=== PATIENT | male | born 1985 | race Caucasian/White ===

== ENCOUNTER 2018-09-28 21:18 | Inpatient (IN) | payer BC, MEDICAID ==
[~2018-09-28] VITALS: Ht 170.2 cm; Wt 79.0 kg
[2018-09-28] MEDS ORDERED: phenobarbital inj 260 MG in normal saline 100ml IV soln 99 ML IV STA (21:38)
[2018-09-28] MEDS ORDERED: ondansetron/PF 4mg/2ml inj IV ONE (21:40)
[2018-09-28] MEDS ORDERED: thiamine 100mg tablet PO ONE (21:40)
[2018-09-28] MEDS ORDERED: magnesium oxide 400mg tablet PO ONE (21:40)
[2018-09-28] MEDS ORDERED: normal saline 1000ML IV soln IVB ONE (21:40)
[2018-09-28 21:51] LABS: BASOPHILS # (AUTO) 0.1 X10'3 (0-0.2); BASOPHILS % (AUTO) 0.5 % (0-1); EOSINOPHILS % (AUTO) 0.4 % (0-6); HEMATOCRIT 45.5 % (42.0-52.0); HEMOGLOBIN 15.4 g/dl (14.0-17.9); LYMPHOCYTES # (AUTO) 1.6 X10'3 (1.1-4.8); LYMPHOCYTES % (AUTO) 15.6 % (21-51); MEAN CORPUSCULAR HEMOGLOBIN 33.5 PG (27.0-31.0); MEAN CORPUSCULAR HGB CONC 33.7 % (33.0-36.5); MEAN CORPUSCULAR VOLUME 99.3 FL (78-98); MEAN PLATELET VOLUME 7.4 FL (7.4-10.4); MONOCYTES # (AUTO) 0.9 X10'3 (0-0.9); MONOCYTES % (AUTO) 8.6 % (2-12); NEUTROPHILS # (AUTO) 7.7 X10'3 (1.8-7.7); NEUTROPHILS % (AUTO) 74.9 % (42-75); PLATELET COUNT 292 X10'3 (140-440); RED BLOOD COUNT 4.59 X10'6 (4.70-6.10); RED CELL DISTRIBUTION WIDTH 15.2 % (11.5-14.5); WHITE BLOOD COUNT 10.3 X10'3 (4.5-11.0)
[2018-09-28 22:04] LABS: ALANINE AMINOTRANSFERASE 98 U/L (12-78); ALBUMIN 3.9 G/DL (3.4-5.0); ALBUMIN/GLOBULIN RATIO 0.9 (1.1-1.5); ALKALINE PHOSPHATASE 121 IU/L (46-116); ANION GAP 14 (8-16); ASPARTATE AMINO TRANSFERASE 69 U/L (10-37); BILIRUBIN,TOTAL 0.6 MG/DL (0.1-1.0); BLOOD UREA NITROGEN 5 MG/DL (7-18); BUN/CREATININE RATIO 5.6 (5.4-32.0); CHLORIDE 98 MMOL/L (99-107); ETHANOL 0.026 GM/DL (0.0-0.010); GLUCOSE 112 MG/DL (70-104); LIPASE 107 U/L (73-393); MAGNESIUM 2.1 MG/DL (1.5-2.4); POTASSIUM 3.2 MMOL/L (3.5-5.1); SODIUM 137 MMOL/L (135-145); TOTAL CARBON DIOXIDE 25.1 MMOL/L (24-32); TOTAL PROTEIN 8.1 G/DL (6.4-8.2); eGFR > 90 ML/MIN
[2018-09-28] MEDS ORDERED: potassium Cl 20 mEq SR tablet PO STA (22:39)
[2018-09-28] MEDS ORDERED: phenobarbital inj 130 MG in normal saline 100ml IV soln 99 ML IV PRN (22:40)
[2018-09-28] MEDS ORDERED: phenobarbital sod 130mg/ml inj. IV ONE (22:45)
[2018-09-28 23:56] LABS: CLARITY,URINE CLEAR (Clear); COLOR,URINE YELLOW (Yellow); GLUCOSE, URINE NEGATIVE (Neg); KETONES,URINE NEGATIVE (Neg); LEUKOCYTE ESTERASE ,URINE NEGATIVE (Neg); NITRITES, URINE NEGATIVE (Neg); OCCULT BLOOD,URINE NEGATIVE (Neg); PROTEIN,URINE NEGATIVE (Neg); UROBILINOGEN,URINE 0.2 E.U/dL (0.2-1.0)
[2018-09-28] MEDS ORDERED: NORMAL SALINE IV STA (23:59)
[2018-09-28] MEDS ORDERED: PHENOBARBITAL IV STA (23:59)
[2018-09-29] MEDS ORDERED: normal saline 1000ML IV soln IVB ONE (00:05)
[2018-09-29 00:06] LABS: UA COLLECTION TYPE VOIDED
[2018-09-29] MEDS ORDERED: BUPR150T8 PO (02:07)
[2018-09-29] MEDS ORDERED: AMPH10TA23 PO (02:07)
[2018-09-29] MEDS ORDERED: LORazepam 2 mg/ml vial IV ONE (02:30)
[2018-09-29] MEDS ORDERED: potassium cl 20mEq in 1/2 NS 1,000 ML IV SCH (02:53)
[2018-09-29] MEDS ORDERED: dextrose 50%-water 50ml dispensing syringe IV PRN (02:55)
[2018-09-29] MEDS ORDERED: HYDROmorphone 1 mg/ml syringe IV PRN (02:55)
[2018-09-29] MEDS ORDERED: bisacodyl 10mg suppository rectal RC PRN (02:55)
[2018-09-29] MEDS ORDERED: acetaminophen 325mg tablet PO PRN ×2 (02:55)
[2018-09-29] MEDS ORDERED: loperamide 2mg capsule PO PRN (02:55)
[2018-09-29] MEDS ORDERED: morphine 4 MG/ML inj SYRINge IV PRN (02:55)
[2018-09-29] MEDS ORDERED: haloperidol 5mg tablet PO PRN (02:55)
[2018-09-29] MEDS ORDERED: diphenhydrAMINE 25mg capsule PO PRN (02:55)
[2018-09-29] MEDS ORDERED: potassium Cl 20 mEq SR tablet PO PRN ×2 (02:55)
[2018-09-29] MEDS ORDERED: haloperidol lactate 5mg/ml inj IM PRN (02:55)
[2018-09-29] MEDS ORDERED: cloNIDine 0.1 MG/24 HOUR patch (7 day patch) TD SCH (02:55)
[2018-09-29] MEDS ORDERED: ondansetron/PF 4mg/2ml inj IV PRN (02:55)
[2018-09-29] MEDS ORDERED: dicyclomine 10 MG capsule PO PRN (02:55)
[2018-09-29] MEDS ORDERED: potassium Cl 40MEQ/NS 500ml 500 ML IV PRN ×2 (02:55)
[2018-09-29] MEDS ORDERED: HYDROcodone/acetaminophen 10/325mg tab PO PRN (02:55)
[2018-09-29] MEDS ORDERED: magnesium hydroxide 30ml (MOM) UD suspension PO PRN (02:55)
[2018-09-29] MEDS ORDERED: diphenhydrAMINE 50 mg/ml inj IV PRN (02:55)
[2018-09-29] MEDS ORDERED: cyclobenzaprine 10mg tablet PO PRN (02:55)
[2018-09-29] MEDS ORDERED: metoclopramide 5 mg/ml inj IV PRN (02:55)
[2018-09-29] MEDS ORDERED: acetaminophen 650mg rectal suppository RC PRN (02:55)
[2018-09-29] MEDS ORDERED: mag hydrox/Alum hydrox/simeth 30ml oral suspension PO PRN (02:55)
[2018-09-29] MEDS ORDERED: pantoprazole 40mg Tablet.DR PO SCH (07:30)
[2018-09-29] MEDS ORDERED: K and/or MAG REPLACEMENT MC SCH (08:00)
[2018-09-29] MEDS ORDERED: nicotine 21mg patch - 24 hr TD SCH (08:00)
[2018-09-29] MEDS ORDERED: folic acid inj. 2 MG, thiamine inj. 100 MG, MVI, adult No.4 with vit. K 10 ML in dextro... IV SCH ×4 (08:00)
[2018-09-29] MEDS ORDERED: docusate sod 100mg capsule PO SCH (08:00)
[2018-09-29] MEDS ORDERED: heparin, porcine 5000 units/ml vial SQ SCH (08:00)
[2018-09-29 09:22] VITALS: BP 144/95
[2018-09-29 09:26] LABS: BASOPHILS % (AUTO) 0.3 % (0-1); EOSINOPHILS # (AUTO) 0.1 X10'3 (0-0.9); EOSINOPHILS % (AUTO) 1.3 % (0-6); HEMATOCRIT 44.3 % (42.0-52.0); LYMPHOCYTES # (AUTO) 1.5 X10'3 (1.1-4.8); LYMPHOCYTES % (AUTO) 18.2 % (21-51); MEAN CORPUSCULAR HEMOGLOBIN 33.8 PG (27.0-31.0); MEAN CORPUSCULAR VOLUME 99.6 FL (78-98); MEAN PLATELET VOLUME 7.8 FL (7.4-10.4); MONOCYTES # (AUTO) 0.6 X10'3 (0-0.9); MONOCYTES % (AUTO) 8.1 % (2-12); NEUTROPHILS # (AUTO) 5.8 X10'3 (1.8-7.7); NEUTROPHILS % (AUTO) 72.1 % (42-75); PLATELET COUNT 219 X10'3 (140-440); RED BLOOD COUNT 4.45 X10'6 (4.70-6.10); RED CELL DISTRIBUTION WIDTH 15.3 % (11.5-14.5)
[2018-09-29 09:47] LABS: ALANINE AMINOTRANSFERASE 75 U/L (12-78); ALBUMIN 3.2 G/DL (3.4-5.0); ALBUMIN/GLOBULIN RATIO 0.9 (1.1-1.5); ALKALINE PHOSPHATASE 105 IU/L (46-116); ANION GAP 11 (8-16); ASPARTATE AMINO TRANSFERASE 54 U/L (10-37); BILIRUBIN,TOTAL 0.8 MG/DL (0.1-1.0); BLOOD UREA NITROGEN 4 MG/DL (7-18); BUN/CREATININE RATIO 5.6 (5.4-32.0); CALCIUM 8.1 MG/DL (8.5-10.1); CHLORIDE 103 MMOL/L (99-107); CREATININE 0.71 MG/DL (0.60-1.10); GLUCOSE 94 MG/DL (70-104); POTASSIUM 4.1 MMOL/L (3.5-5.1); SODIUM 135 MMOL/L (135-145); TOTAL CARBON DIOXIDE 20.8 MMOL/L (24-32); TOTAL PROTEIN 6.9 G/DL (6.4-8.2); eGFR > 90 ML/MIN
[2018-09-29 09:50] LABS: HEMOGLOBIN A1C 4.7 % (4.5-6.2)
[2018-09-29 09:58] LABS: PHOSPHORUS 2.8 MG/DL (2.3-4.5)
[2018-09-29 10:00] LABS: PARTIAL THROMBOPLASTIN TIME 29 SECONDS (22-32); PROTHROMBIN TIME 10.4 SECONDS (9.0-12.0)
[2018-09-29] MEDS ORDERED: GABA300C PO (10:41)
[2018-09-29] MEDS ORDERED: METO25TA6 PO (10:41)
[2018-09-29] MEDS ORDERED: FOLI1TAB16 PO (10:41)
[2018-09-29] MEDS ORDERED: THIA100T66 PO (10:41)
[2018-09-29] MEDS ORDERED: temazepam 15mg capsule PO PRN (21:00)
[2018-10-01] MEDS ORDERED: LORazepam 2 mg/ml vial IV PRN (02:55)
== END 2018-09-29 11:40 | disposition home or self-care (01) | DRG 775 ==
LOC: ER 21:19 → ED HOLD 09-29 02:53 → ORTHO 4S 09-29 08:25
PROVIDERS: ADMIT Family Medicine; ATTEND Internal Medicine
DX: F10.229 Alcohol dependence with intoxication, unspecified (principal); K70.10 Alcoholic hepatitis without ascites; F10.230 Alcohol dependence with withdrawal, uncomplicated; E87.6 Hypokalemia; I10 Essential (primary) hypertension; Y90.0 Blood alcohol level of less than 20 mg/100 ml; F17.200 Nicotine dependence, unspecified, uncomplicated; R25.1 Tremor, unspecified; Z79.899 Other long term (current) drug therapy; Z71.6 Tobacco abuse counseling; Z71.41 Alcohol abuse counseling and surveillance of alcoholic
CPT/HCPCS: 36415; 80053; 80320; 81003; 83036; 83690; 83735; 83880; 84100; 84443; 84484; 85025; 85610; 85730; 87070; 93005; 96365; 96375; 99285; G0378; J1644; J2060; J2405; J2560; J3411; J3490; J7030; J7060

== ENCOUNTER 2018-09-29 18:26 | Emergency (ER) | payer MEDICAID ==
[~2018-09-29] VITALS: Ht 170.2 cm; Wt 81.0 kg
[~2018-09-29 18:26] MED LIST: AMPH10TA23 PO; BUPR150T8 PO; FOLI1TAB16 PO; GABA300C PO; METO25TA6 PO; THIA100T66 PO
[2018-09-29 18:35] VITALS: BP 139/105
[2018-09-29 20:29] LABS: URINE AMPHETAMINE SCREEN NEGATIVE (Neg); URINE BARBITUATE SCREEN POSITIVE (Neg); URINE BENZODIAZEPINES SCREEN NEGATIVE (Neg); URINE CANNABINOID SCREEN NEGATIVE (Neg); URINE COCAINE SCREEN NEGATIVE (Neg); URINE METHADONE SCREEN NEGATIVE (Neg); URINE OPIATE SCREEN NEGATIVE (Neg); URINE PHENCYCLIDINE SCREEN NEGATIVE (Neg)
== END 2018-09-29 20:37 | disposition home or self-care (01) ==
LOC: ER 18:26
DX: F10.10 Alcohol abuse, uncomplicated (principal); R25.1 Tremor, unspecified; Z79.899 Other long term (current) drug therapy; Z98.890 Other specified postprocedural states; Y90.9 Presence of alcohol in blood, level not specified
CPT/HCPCS: 36415; 80305; 80320; 99283